=== PATIENT | female | born 1940 | race African-American/Black ===

== ENCOUNTER 2017-02-17 12:51 | Outpatient (CLI) | payer MEDICARE ==
[~2017-02-17 12:51] MED LIST: NKM
--- NOTE | 2017-02-17 16:08 | Diagnostic Imaging Report ---
Indication: Pain near left axilla. History of left breast carcinoma. History of left mastectomy Technique: Axial T2 FR FSE with and without fat saturation, double IR T1 fast spin echo, axial 2-D fiesta fat saturated, axial T1 spoiled gradient breath hold, coronal SSFSE ARC trauma coronal T2 FR FSE images obtained of the chest centered on the left axillary region. No IV contrast given, per referring physician request and given history renal insufficiency Comparison: None Findings: Exam is limited, due to relatively large [id number] and the due to body coil. Only limited fat saturation could be achieved, and STIR images could not be obtained due to likely a respiratory artifact. Graph a marker singh the area of pain in the left anterior axillary/axillary region. No abnormal signal is seen in the underlying subcutaneous fat or musculature to suggest contusion or muscular injury. Intermediate signal is seen expanding the mid to upper sternal body. Numerous masses are seen within the lungs. These are not optimally characterized, as imaging protocol was not tailored to assessment of such. There is suggestion of adenopathy within the right-sided pericardial fat and possibly in the mediastinum. The left breast is surgically absent. No axillary adenopathy is evident. Small foci of susceptibility artifact are noted in the left axilla, likely indicate axillary surgical clips. There is a small right-sided pleural effusion Impression: Surgically absent left breast No definite muscular or subcutaneous abnormality in left axilla to explain stated clinical history of left axillary pain. Expansile lesion within the sternum, suspicious for metastatic disease given stated clinical history of breast carcinoma Multiple lung nodules, incompletely characterized. Suspicious for metastatic deposits, given clinical history breast carcinoma. If clinically indicated, chest CT may be useful to better evaluate the chest for pulmonary and osseous disease. Small right-sided pleural effusion
== END 2017-02-17 14:51 | disposition home or self-care (01) ==
LOC: MRI 12:51
DX: R07.9 Chest pain, unspecified (principal); Z85.3 Personal history of malignant neoplasm of breast; Z90.12 Acquired absence of left breast and nipple; J90 Pleural effusion, not elsewhere classified; R91.8 Other nonspecific abnormal finding of lung field
CPT/HCPCS: 71550

== ENCOUNTER 2017-03-09 10:23 | Outpatient (CLI) | payer MEDICARE ==
--- NOTE | 2017-03-09 15:59 | Diagnostic Imaging Report ---
Indication: History of breast carcinoma with metastases. Metastatic survey Technique: sagittal T1 fast spin echo, axial T1 and T2 FLAIR PROPELLER, axial T2 FS PROPELLER, T2* GRE, axial diffusion weighted images, post contrast axial and coronal T1 FLAIR PROPELLER images. ADC and exponential ADC maps generated Comparison: None Findings: . No abnormal areas of restricted diffusion to suggest acute infarction. No acute hemorrhage or edema. No mass effect nor midline shift. No abnormal contrast enhancement. There is mild age-related enlargement of the ventricles and extra axial CSF spaces. The vascular flow voids are preserved. Small old lacunar infarct is seen in the left anterior lentiform nucleus. There is a focus of susceptibility artifact on the GRE images in the posterior left lentiform nucleus, consistent with old microbleed. There is also a tiny focus of susceptibility artifact in the left frontal deep white matter. Visualized orbits and sinuses are unremarkable. . Impression: Negative for acute intracranial bleed, mass effect, infarct, or contrast enhancing lesion Foci of susceptibility artifact in the left lentiform nucleus and left frontal deep white matter, consistent with old microbleeds Chronic and age-related changes, as described
--- NOTE | 2017-03-09 16:17 | Diagnostic Imaging Report ---
Indication: History of breast carcinoma and left mastectomy abnormal recent chest MRI Technique: Patient given oral contrast. IV administration nonionic contrast. Multiphasic spiral acquisitions obtained through the chest, abdomen, and pelvis. Multiplanar reconstructions were generated. Total dose length product 2033 mGycm. CTDIvol(s) 8, 89, 20, 21, 21 mGy. Radiation dose was minimized using automated exposure control Comparison: Reference made to limited chest MRI dated 02/17/2017 Findings: Chest: Multiple nodules of varying sizes are seen scattered throughout both lungs. The largest is probably one in the anterior inferior right upper lobe which measures 17 cm long axis dimension. No definite infiltrates, effusions, or congestion. No mediastinal or hilar mass or adenopathy. No pericardial effusion. The heart is borderline enlarged. An expansile mass is seen within the superior sternal body. This measures 6.2 cm in length by 3.3 cm transverse by 2.9 cm AP. Results in essentially complete destruction of involved portion of the sternal body. No other definite osseous lesions are demonstrated. The patient is status post left mastectomy. Surgical clips are seen in the left axilla. No axillary or chest wall mass or adenopathy. The thyroid is unremarkable. Abdomen pelvis: The liver is mildly hypoattenuating, consistent with hepatic steatosis. No definite focal abnormality is evident. The gallbladder, bile ducts, pancreas are unremarkable. The spleen demonstrates multiple granulomatous calcifications. The adrenals are unremarkable. The right kidney is not visualized. Multiple surgical clips in the region of the right kidney are consistent with prior right nephrectomy. The left kidney is unremarkable, except that contrast from recent MRI is seen within the collecting system and bladder. No retroperitoneal or mesenteric mass or adenopathy. There is a round 10 cm diameter mass within the uterus, consistent with a large fibroid. No other pelvic mass or adenopathy is evident. The appendix is normal, filled with contrast. There is colonic diverticulosis. No evidence of diverticulitis. No small bowel distention. No free or loculated intraperitoneal air or fluid is evident. The duodenum, stomach, esophagus are unremarkable. There are degenerative changes of the lumbar spine. No osteolytic lesions are demonstrated. Impression: Numerous bilateral lung nodules. Given stated clinical history of breast carcinoma, most likely represent numerous metastases. Given evidence of prior nephrectomy, the possibility of renal carcinoma as a primary should also be considered if the nephrectomy was for malignancy Destructive mass within the sternal body, as described, also reported on prior chest MRI. This likewise is consistent with a metastatic deposit No definite evidence of abdominal or pelvic metastases Hepatic hypoattenuation, consistent with hepatic steatosis Evidence of prior right nephrectomy 10 cm uterine mass, most likely a fibroid Colonic diverticulosis. No evidence of diverticulitis Incidental finding of degenerative spondylosis, granulomatous calcifications within the spleen The CT scanner at [facility] is accredited by the [employer] and the scans are performed using protocols designed to limit radiation exposure to as low as reasonably achievable to attain images of sufficient resolution adequate for diagnostic evaluation.
== END 2017-03-09 12:23 | disposition home or self-care (01) ==
LOC: MRI 10:23
DX: R91.8 Other nonspecific abnormal finding of lung field (principal); Z90.5 Acquired absence of kidney; Z90.13 Acquired absence of bilateral breasts and nipples; Z85.3 Personal history of malignant neoplasm of breast; K57.90 Diverticulosis of intestine, part unspecified, without perforation or abscess without bleeding; M47.9 Spondylosis, unspecified; D73.89 Other diseases of spleen
CPT/HCPCS: 70553; 71260; 74177; A9585; Q9967

== ENCOUNTER 2017-03-11 09:44 | Outpatient (CLI) | payer MEDICARE ==
--- NOTE | 2017-03-11 15:19 | Diagnostic Imaging Report ---
Indication: Pain Technique: 24.5 mCi of technetium 99 M-MDP was injected intravenously. A whole-body bone scan was then performed in anterior and posterior projections. Several spot images were also obtained. Comparison: None Findings: . Normal uptake is demonstrated throughout the axial skeleton. There are no focal lesions identified to indicate metastatic neoplasm. There is increased uptake in the medial part of the left knee likely due to osteoarthritis. Photopenic defect in the left anterior chest wall is noted. This may be a pacemaker or other overlying structure. Impression: No significant abnormalities whole body bone scan
== END 2017-03-11 11:44 | disposition home or self-care (01) ==
LOC: NUM 09:44
DX: R52 Pain, unspecified (principal)
CPT/HCPCS: 78306; A4641

== ENCOUNTER → 2020-04-22 | Outpatient (CLI) | payer MEDICAID, MEDICARE ==
--- NOTE | 2020-04-22 12:45 | Diagnostic Imaging Report ---
Indication: Pain, history of breast cancer with increased tumor markers Technique: sagittal T1 fast spin echo, axial T1 and T2 FLAIR PROPELLER, axial T2 FS PROPELLER, T2* GRE, axial diffusion weighted images, post contrast axial and coronal T1 FLAIR PROPELLER images. ADC and exponential ADC maps generated Comparison: 03/09/2017 Findings: . No abnormal areas of restricted diffusion to suggest acute infarction. No acute hemorrhage or edema. Again demonstrated are foci of susceptibility artifact in the left posterior lentiform nucleus and left inferior frontal deep white matter, consistent with old microbleeds. Minimal periventricular deep white matter high T2 signal is again demonstrated, consistent with chronic microvascular ischemic changes No mass effect nor midline shift. No abnormal contrast enhancement. There is mild age-related enlargement of the ventricles and extra-axial CSF spaces. The vascular flow voids are preserved. The visualized orbits and sinuses are unremarkable. When compared to the previous study, no significant interim change Impression: Negative for acute intracranial bleed, mass effect, infarct, or contrast enhancing lesion. Chronic and age-related changes, as described
--- NOTE | 2020-04-22 15:11 | Diagnostic Imaging Report ---
Indication: Pain, history of breast cancer, elevated tumor markers Technique: IV administration 20 4. mCi 99m technetium MDP. Whole body and spot images were obtained. Comparison: 03/11/2017 No comparison plain radiographs. Reference made to abdomen pelvis and chest CT dated 03/09/2017 Findings: Increased activity about the left knee is probably due to degenerative change. This is also evident previously. Slight mandibular uptake may indicate dental disease. This is also demonstrated previously No other abnormal foci of increased or decreased uptake are demonstrated. No findings to suggest metastatic disease. Normal left renal and bladder activity demonstrated. No right renal activity demonstrated, patient with known history of prior right nephrectomy. Prior study demonstrated prominent peripheral sternal activity with central decreased activity, with on CT scan of 03/09/2017 was demonstrated to be an expansile sternal lesion. The current exam, there is prominent upper sternal activity, and absence of lower sternal activity.. Impression: Prominent upper sternal and absent lower sternal activity, appearing different than on previous study of 2017. This may represent progression of the sternal mass described on the [address] No other abnormal foci of increased activity to suggest metastatic disease demonstrated Degenerative knee activity
== END | disposition home or self-care (01) ==
LOC: NUM 08:49
DX: R52 Pain, unspecified (principal); Z85.3 Personal history of malignant neoplasm of breast; Z90.5 Acquired absence of kidney; R97.8 Other abnormal tumor markers
CPT/HCPCS: 70553; 78306; A4641; A9585